=== PATIENT | male | born 1975 | race Caucasian/White ===

== ENCOUNTER 2020-10-29 16:26 | Observation (INO) | payer OTHER ==
[~2020-10-29] VITALS: Ht 170.2 cm; Wt 96.0 kg
[2020-10-29 16:00] VITALS: BP 113/77; PULSE 77; TEMP 97.7
--- NOTE | 2020-10-29 18:50 | NUR ---
Received report from Barb. Patient awake, sitting in bed. Workmates on the bedside. He reports chest pain of 4-6/10. He is waiting for his dinner tray. With INT on left and right AC.
[2020-10-29 18:51] LABS: INR 0.9 (0.8-3.0); PROTHROMBIN TIME 10.5 SECONDS (9.7-12.8)
[2020-10-29 18:52] LABS: ALANINE AMINOTRANSFERASE 42 U/L (4-49); ALKALINE PHOSPHATASE 81 U/L (50-136); ANION GAP 7 mmol/L (7-16); AST,SGOT 32 U/L (15-37); BILIRUBIN,TOTAL 0.6 mg/dL (0.0-1.0); BLOOD UREA NITROGEN 19 mg/dL (9-20); CALCIUM 9.2 mg/dL (8.4-10.2); CARBON DIOXIDE 26 mmol/L (22-30); CHLORIDE 105 mmol/L (98-107); CREATINE KINASE 148 U/L (55-170); CREATININE, serum 0.98 (0.66-1.25); GLUCOSE 93 mg/dL (74-106); MAGNESIUM 2.1 mg/dL (1.6-2.3); POTASSIUM 4.2 mmol/L (3.4-5.0); SODIUM 138 mmol/L (137-145); TOTAL PROTEIN 7.1 gm/dL (6.4-8.2)
[2020-10-29 18:53] LABS: BASO % 0.4 % (0.0-2.0); EOS # 0.2 (0.0-0.7); EOS % 2.7 % (0-4.0); GRAN # 2.9 (1.4-6.5); GRAN % 41.9 % (42.2-75.2); HEMATOCRIT 47.4 % (42.0-52.0); HEMOGLOBIN 16.1 g/dl (13.5-18.0); LYMPH # 3.2 (1.2-3.4); MEAN CELL VOLUME 82 fl (80.0-100.0); MEAN CORPUSCULAR HEMOGLOBIN 28 pg (27.0-31.0); MEAN CORPUSCULAR HGB CONC 34 g/dl (33.0-37.0); MEAN PLATELET VOLUME 10.3 fl (7.4-10.4); MONO # 0.6 (0.1-0.6); MONO % 8.7 % (1.7-9.3); PARTIAL THROMBOPLASTIN TIME 33.3 SECONDS (26.0-37.0); PLATELET COUNT 252 K/mm3 (130-400); RED BLOOD COUNT 5.77 M/mm3 (4.20-5.60); REDCELL DISTRIBUTION WIDTH-CV 12.9 % (11.5-14.5)
[2020-10-29 19:14] LABS: TROPONIN-I < 0.012 ng/mL (0.000-0.035)
--- NOTE | 2020-10-29 19:53 | NUR ---
Assesment done. Instructed patient to be on NPO by midnight. Informed patient regarding his PRN pain medications. He refuses pain meds for now. Instructed him to call if he experienced any severe pain. Neuro checks done. Patient is alert and oriented. He is independent in the room. He complains of pain on his right IV site and I removed it already. His lungs are clear. No skin issues. Call light within reach.
[2020-10-29 19:54] VITALS: BP 133/85; PULSE 66; TEMP 97.9
[2020-10-29] MEDS ORDERED: FLEXERIL 1010 MG/TAB PO (20:03)
[2020-10-30] VITALS (12 sets, daily range): BP systolic 104–138; BP diastolic 65–94; PULSE 59–93; TEMP 97.9–98.4
--- NOTE | 2020-10-30 06:07 | NUR ---
Patient reports still having some chest pain with the same severity from last night. Pain score of 4-6/10. He refuses pain medication. Maintained on NPO.
[2020-10-30 06:44] LABS: CHOLESTEROL 206 mg/dL (120-200); CHOLESTEROL RISK RATIO 5.7; HDL CHOLESTEROL 36 mg/dL; LDL CHOLESTEROL 98 mg/dL; TRIGLYCERIDE 362 mg/dL
[2020-10-30 06:49] LABS: TROPONIN-I < 0.012 ng/mL (0.000-0.035)
[2020-10-30 09:41] LABS: INR 0.9 (0.8-3.0); PROTHROMBIN TIME 10.3 SECONDS (9.7-12.8)
--- NOTE | 2020-10-30 09:47 | NUR ---
Patient sleeping in bed at this time. Patient does not C/O any pain or discomfort at this time. Denies any needs. Will continue to monitor. Call light within reach.
--- NOTE | 2020-10-30 10:11 | NUR ---
Initial visit; Patient thanked Briar Cutter for offering spiritual care and thanking him for his service in the [employer]. Patient stated his Briar Cutter came to see him last night and thanked [address] [facility] for keeping him in her prayers.
--- NOTE | 2020-10-30 12:20 | NUR ---
Patient taken down for heart cath by REBECCA Renteria. Patient stable.
[2020-10-30] MEDS ORDERED: IMDUR 30MG30 MG/TAB PO (15:04)
[2020-10-30] MEDS ORDERED: PROTONIX 40MG T40 MG PO (15:04)
[2020-10-30] MEDS ORDERED: NAPROSYN 2250 MG/TAB PO (15:04)
--- NOTE | 2020-10-30 17:21 | NUR ---
Compression band deflated by 5ml. Immediately started bleeding. Reinflated 5ml, bleeding stopped. Will continue to monitor.
--- NOTE | 2020-10-30 19:37 | NUR ---
Patient resting in bed at this time. Still C/O sternal and shoulder pain rate a 4/10. Recieving Naproxen for pain. Patient denies any further needs at this time. Call light within reach.
--- NOTE | 2020-10-30 20:45 | NUR ---
Initial assessment done- states has slight headache, states would like something for the headache but is allergic to tylenol-- will call Danielle to order pain med-- Right wrist site with radail band on-- released 5cc of air at this time with no bleeding-
--- NOTE | 2020-10-30 22:00 | NUR ---
Last 5 cc of air removed from radial compression band-- band removed- no bleeding,bandaid applied
[2020-10-31 03:53] VITALS: BP 102/65; PULSE 64; TEMP 98
[2020-10-31 04:25] VITALS: BP 102/65
--- NOTE | 2020-10-31 04:49 | NUR ---
Quiet night- no requests, VSS
--- NOTE | 2020-10-31 07:01 | NUR ---
Patient sitting up in bed at this time. Patient C/O chest pain rated a 4/10. Motrin given. Patient denies any further needs at this time. Will continue to monitor. Call light within reach.
[2020-10-31 07:33] VITALS: BP 108/63; PULSE 61; TEMP 97.7
[2020-10-31] MEDS ORDERED: SALONPAS1 EACH TP (08:41)
--- NOTE | 2020-10-31 11:07 | NUR ---
Patient discharging. Education given to patient, patient denied any questions regarding the teaching. Patient is fit for discharge. IV DC'd, catheter intact, no signs of phlebitis. will be picking him up. Patient denies any further needs at this time. Will continue to monitor while on the medical floor. Call light within reach.
[2020-10-31 11:12] VITALS: BP 117/71; PULSE 63; TEMP 98.1
--- NOTE | 2020-10-31 13:02 | NUR ---
PATIENT ESCORTED OUT OF BUILDING BY [facility] STAFF.
== END 2020-10-31 12:00 | disposition home or self-care (01) ==
LOC: MEDICAL 16:26
PROVIDERS: Internal Medicine Cardiovascular Disease; ADMIT Family Medicine
DX: R07.89 Other chest pain (principal); Z87.891 Personal history of nicotine dependence; Z86.39 Personal history of other endocrine, nutritional and metabolic disease; I08.1 Rheumatic disorders of both mitral and tricuspid valves
CPT/HCPCS: 99232-AI; G0378; J1200; J1644; J1650; J2250; J2270; J7030; Q9967

== ENCOUNTER → 2020-11-24 | Outpatient (CLI) | payer OTHER ==
[~2020-11-24] MED LIST: FLEXERIL 1010 MG/TAB PO; IMDUR 30MG30 MG/TAB PO; NAPROSYN 2250 MG/TAB PO; PROTONIX 40MG T40 MG PO; SALONPAS1 EACH TP
== END ==
LOC: MHCPAIN 08:28
DX: M47.812 Spondylosis without myelopathy or radiculopathy, cervical region (principal); M54.2 Cervicalgia; M54.12 Radiculopathy, cervical region; G89.29 Other chronic pain
CPT/HCPCS: G0463

== ENCOUNTER → 2020-12-10 | Outpatient (CLI) | payer OTHER | LOC: MHCPAIN 08:16 | DX: M47.812 Spondylosis without myelopathy or radiculopathy, cervical region (principal); M54.12 Radiculopathy, cervical region | CPT/HCPCS: J1100; Q9967 ==

== ENCOUNTER → 2020-12-22 | Outpatient (CLI) | payer OTHER | LOC: MHCPAIN 13:01 | DX: M47.812 Spondylosis without myelopathy or radiculopathy, cervical region (principal); M54.2 Cervicalgia; M89.29 Other disorders of bone development and growth, multiple sites | CPT/HCPCS: G0463 ==